=== PATIENT | male | born 1965 | race Caucasian/White ===

== ENCOUNTER → 2017-04-06 | Outpatient (CLI) | payer OTHER ==
[~2017-04-06] MED LIST: PEN-VEE K PO; ROBAXIN500 MG PO; VICODIN 5/500 T1 TAB PO; VOLTAREN75 MG PO; ZESTRIL10 MG PO
--- NOTE | ~2017-04-06 | US5 ---
[facility] A Service of [facility] & [facility] & [facility] RADIOLOGY TEXT RESULTS PATIENT: FARHAT FRANK LOCATION: [facility] : 67 UNIT #: [id number] AGE: [address]: ALLIE MCMAHAN SEX: M ORDER DR: [id number] [facility] [address] [place], [place] [address] [id number] O MR#: [id number] Acc #: [id number] NAME: FARHAT FRANK : 1965 SEX: M STUDY DATE/TIME: 04/06/2017 7:37 UNIT: [facility] ROOM: STUDY DESCRIPTION: US Abdominal Complete Attending Physician: Allie Mcmahan M.D. Referring Physician: Allie Mcmahan M.D. Ordering Physician: Kamila Langston Primary Care Physician: Jeremiah Bishop M.D. MEDICAL IMAGING REPORT This report is preliminary unless electronic signature is present EXAM Abdominal ultrasound INDICATIONS Hepatitis C diagnosed a month and a half ago TECHNIQUE Suarez-scale, color Doppler and spectral Doppler waveform analysis was performed through the abdomen. FINDINGS There is very limited visualization of the pancreas. Abdominal aorta measures within normal size limits. There is coarsening of hepatic echotexture and the patient does have diffuse hepatic steatosis. Liver is enlarged measuring up to 16.5 cm in craniocaudal dimensions. No focal hepatic lesions are seen and there is no intra or extrahepatic biliary dilatation. Patient's kidneys are also normal in appearance with no solid or cystic renal masses seen and no hydronephrosis identified. Gallbladder is also normal with no stones or sludge seen and no gallbladder wall thickening or pericholecystic fluid identified. Spleen measures within normal size limits. IMPRESSION Hepatomegaly and diffuse hepatic steatosis as well as some coarsening of hepatic echotexture in keeping with history of hepatitis C. Dictated by... Carlita Diaz M.D. THIS IS AN ELECTRONICALLY VERIFIED REPORT Carlita Diaz M.D. at 04/06/2017 4:17 PM AFF/to [facility] A Service of [facility] & [facility] & [facility] RADIOLOGY TEXT RESULTS PATIENT: FARHAT FRANK LOCATION: [facility] #: [id number] : [birth year] UNIT #: [id number] AGE: [address]: ALLIE MCMAHAN SEX: M ORDER DR: TD: 04/06/2017 14:34 JOB #: [id number] MEDICAL IMAGING REPORT Page 1 of 1 COPY
== END | disposition home or self-care (01) ==
LOC: CGUS 07:19
DX: B18.2 Chronic viral hepatitis C (principal); K76.0 Fatty (change of) liver, not elsewhere classified; R16.0 Hepatomegaly, not elsewhere classified; R93.2 Abnormal findings on diagnostic imaging of liver and biliary tract
CPT/HCPCS: 76700